=== PATIENT | male | born 1975 | race Caucasian/White ===

== ENCOUNTER 2016-09-12 21:47 | Emergency (ER) | payer OTHER ==
[~2016-09-12] VITALS: Ht 185.4 cm; Wt 140.9 kg
[~2016-09-12 21:47] MED LIST: ALBU8.5H3 INH; PRED20TA PO
[2016-09-12 21:50] VITALS: Ht 185.4 cm; Wt 140.9 kg
[2016-09-12] MEDS ORDERED: ALBUTEROL 0.5% (NEB) 2.5 MG/0.5 ML AMP INH STA (22:00)
[2016-09-12] MEDS ORDERED: IPRATROPIUM (NEB) 0.5 MG/2.5 ML AMP INH STA (22:00)
--- NOTE | 2016-09-12 22:05 | ERA ---
ER Documentation Chief Complaint Date/Time DATE: 09/12/16 TIME: 22:02 Chief Complaint sob x 2 weeks, hx asthma, decreased l/s, no nebulizer @ home, no rx taken HPI Patient is a 41-year-old male with history of asthma. Denies any other medical conditions. Patient describes shortness of breath 2 days. Patient says that this feels exactly like his previous asthma attacks which have been successfully remedied with breathing treatment. Patient has not used albuterol inhaler. Patient denies any other associated manifestations or severe dyspnea. Denies personal or family history of cardiac disease or diabetes. ROS All systems reviewed and are negative except as per history of present illness. Medications Home Meds Active Scripts Albuterol Sulfate* (Proair HFA*) 8.5 Gm Hfa.aer.ad, 2 PUFF INH Q4H Y for WHEEZING AND SOB, #1 INHALER Prov:JASON HARP PA-C 09/12/16 Albuterol Sulfate* (Proair HFA*) 8.5 Gm Hfa.aer.ad, 2 PUFF INH Q4, #1 INHALER Prov:JORDYN GOODE PA-C 10/16/15 Prednisone* (Prednisone*) 20 Mg Tab, 40 MG PO DAILY for 4 Days, TAB Prov:JORDYN GOODE PA-C 10/16/15 Allergies Allergies: Coded Allergies: No Known Allergy (Unverified , 10/16/15) PMhx/Soc History of Surgery: No Anesthesia Reaction: No Hx Neurological Disorder: No Hx Respiratory Disorders: Yes (Asthma) Hx Cardiac Disorders: No Hx Psychiatric Problems: No Hx Miscellaneous Medical Probl: No Hx Alcohol Use: No Hx Substance Use: No Hx Tobacco Use: No Physical Exam Vitals Vital Signs Date Time Temp Pulse Resp B/P Pulse Ox O2 Delivery O2 Flow Rate FiO2 09/12/16 22:22 99 18 95 21 09/12/16 21:50 98.1 125 18 137/65 98 Physical Exam Const: Morbidly obese 41-year-old male in no acute distress and no dyspnea. Head: Atraumatic Eyes: Normal Conjunctiva ENT: Normal External Ears, Nose and Mouth. Neck: Full range of motion..~ No meningismus. Resp: Mild wheezing in the lower lobes bilaterally. No rales or rhonchi. Percussion was unremarkable in all lung corral bilaterally Cardio: Regular rate and rhythm, no murmurs or gallops. Abd: Soft, non tender, non distended. Normal bowel sounds Skin: No petechiae or rashes Back: No midline or flank tenderness Ext: No cyanosis, or edema Neur: Awake and alert Psych: Normal Mood and Affect Results 24 hrs Current Medications Medications (Trade) Dose Ordered Sig/Romulo Route PRN Reason Start Time Stop Time Status Last Admin Dose Admin Albuterol (Proventil 0.5% (Neb)) 5 mg ONCE STAT INH 09/12/16 22:00 09/12/16 22:03 DC 09/12/16 22:20 Ipratropium [place] (Atrovent 0.02% (Neb)) 1 mg ONCE STAT INH 09/12/16 22:00 09/12/16 22:03 DC 09/12/16 22:20 Procedures/MDM Patient is a 41-year-old morbidly obese male with a history of asthma. Currently has what he describes as an asthma exacerbation. Pulmonary exam was unremarkable except for mild wheezing in the lower lobes bilaterally. Patient states that he has been given a breathing treatment here before and has improved her symptoms. We will go ahead and administer breathing treatment since that has worked for him in the past with similar symptoms. Will reevaluate. Upon evaluation patient said that he was feeling better and lungs are clear to auscultation in all lung corral bilaterally. Patient has stable vitals and is ready for discharge. Will discharge with albuterol inhaler and return precautions. Departure Diagnosis: Primary Impression: Asthma exacerbation Additional Impression: Acute URI Condition: Stable Additional Instructions: Follow up with your PCP within the next 1-3 days for a more thorough evaluation and a possible referral to a specialist. Return the the emergency department immediately if symptoms worsen or change. If you have any questions regarding medications, ask your pharmacist or us before you leave. If any adverse reactions occur while taking your medications, discontinue the treatment and return to the emergency department immediately. Take your medications as directed, and complete the entire course of treatment. JASON HARP PA-C Sep 12, 2016 22:05
[2016-09-12] MEDS ORDERED: ALBU8.5H3 INH (22:40)
== END 2016-09-12 23:55 | disposition home or self-care (01) ==
LOC: FTE 21:47
DX: J45.901 Unspecified asthma with (acute) exacerbation (principal); J06.9 Acute upper respiratory infection, unspecified
CPT/HCPCS: 94644; Z7502; Z7610